=== PATIENT | male | born 1995 | race African-American/Black ===

== ENCOUNTER 2016-09-24 10:07 | Emergency (ER) | payer OTHER, SELFPAY ==
[2016-09-24] MEDS ORDERED: methylPREDNISolone Sod Succ/PF 125 MG/2 ML VIAL ONE (10:42)
--- NOTE | 2016-09-24 10:54 | RAD ---
PORTABLE CHEST: Date: 09-24-16 Comparison: 02-03-08 FINDINGS: Cardiac silhouette and pulmonary vasculature is within normal limits. The lungs remain clear. No oth er interval change. IMPRESSION: No acute cardiopulmonary process. POS: [facility]
[2016-09-24] MEDS ORDERED: Acetaminophen 500 MG TAB ONE (11:24)
== END 2016-09-24 12:13 | disposition home or self-care (01) ==
LOC: NAV ERS 10:07
DX: J45.901 Unspecified asthma with (acute) exacerbation (principal)
CPT/HCPCS: 71010; 94640; 96372; J2930; J7620

== ENCOUNTER 2019-01-10 12:03 | Emergency (ER) | payer SELFPAY ==
[2019-01-10] MEDS ORDERED: predniSONE 20 MG TAB ONE (13:00)
== END 2019-01-10 13:31 | disposition home or self-care (01) ==
LOC: NAV ERS 12:03
DX: J45.909 Unspecified asthma, uncomplicated (principal); F17.210 Nicotine dependence, cigarettes, uncomplicated; Z79.51 Long term (current) use of inhaled steroids
CPT/HCPCS: J7512; J7620

== ENCOUNTER 2020-07-11 09:37 | Emergency (ER) | payer OTHER, SELFPAY ==
[2020-07-11] MEDS ORDERED: HYDROcodone/Acetaminophen 5/325 mg Tablet ONE (10:54)
[2020-07-11] MEDS ORDERED: Bacitracin 1 PK ONE (11:21)
== END 2020-07-11 11:30 | disposition home or self-care (01) ==
LOC: NAV ERS 09:37
DX: S93.325A Dislocation of tarsometatarsal joint of left foot, initial encounter (principal); S93.402A Sprain of unspecified ligament of left ankle, initial encounter; S63.91XA Sprain of unspecified part of right wrist and hand, initial encounter; J45.909 Unspecified asthma, uncomplicated; F17.210 Nicotine dependence, cigarettes, uncomplicated; Z79.51 Long term (current) use of inhaled steroids; V86.56XA Driver of dirt bike or motor/cross bike injured in nontraffic accident, initial encounter

== ENCOUNTER 2021-06-04 16:55 | Emergency (ER) | payer SELFPAY ==
[2021-06-04 23:42] LABS: SARS-CoV-2 PCR by NAA Not Detected (NotDetected)
== END 2021-06-04 17:34 | disposition home or self-care (01) ==
LOC: NAV ERS 16:55
DX: B34.9 Viral infection, unspecified (principal); R11.0 Nausea; J45.909 Unspecified asthma, uncomplicated; F17.210 Nicotine dependence, cigarettes, uncomplicated; Z20.822 Contact with and (suspected) exposure to COVID-19
CPT/HCPCS: 87804; 99283; U0003; U0005

== ENCOUNTER 2021-11-12 18:01 | Emergency (ER) | payer SELFPAY | END 2021-11-12 19:19 | disposition home or self-care (01) | LOC: NAV ERS 18:01 | DX: J06.9 Acute upper respiratory infection, unspecified (principal); Z20.822 Contact with and (suspected) exposure to COVID-19 | CPT/HCPCS: 71045; U0003; U0005 ==

== ENCOUNTER 2022-02-18 10:41 | Emergency (ER) | payer SELFPAY ==
[2022-02-18] MEDS ORDERED: Sodium Chloride 0.9% 1,000 ML ONE ×2 (11:17→14:01)
[2022-02-18] MEDS ORDERED: Albuterol Sulfate 2.5 mg/0.5 ml Neb ONE ×2 (11:17→11:31)
[2022-02-18] MEDS ORDERED: Acetaminophen 500 MG TAB ONE ×2 (11:17→18:43)
[2022-02-18 11:42] LABS: Anion Gap 17 mmol/L (10-20); BUN (Urea Nitrogen) 8 mg/dL (8.9-20.6); Calc. Creatinine Clearance 0 mL/min (70-130); Carbon Dioxide 23 mmol/L (22-29); Chloride 106 mmol/L (98-107); Potassium 3.9 mmol/L (3.5-5.1); Sodium 142 mmol/L (136-145)
[2022-02-18 11:43] LABS: ALT (SGPT) 16 U/L (8-55); AST (SGOT) 16 U/L (5-34); Alkaline Phosphatase 62 U/L (40-110); Bilirubin, Total 1.7 mg/dL (0.2-1.2); Calcium 10.2 mg/dL (7.8-10.44); Estimated GFR 91; Globulin 3.4 g/dL (2.4-3.5); Glucose 99 mg/dL (70-105); Protein, Total 8.4 g/dL (6.0-8.3)
[2022-02-18 12:12] LABS: Bilirubin Negative (Negative); Blood, Urine Trace (Negative); Clarity Slightly Cloudy (Clear); Glucose, Urine (Dipstick) Negative (Negative); Ketone, Urine Trace mg/dL (Negative); Leukocyte Negative (Negative); Nitrite Negative (Negative); Protein, Urine (Dipstick) 30 mg/dL (Neg-Trace); pH, Urine 6.5 (5.0-9.0)
[2022-02-18 12:20] LABS: Hemoglobin 15.7 g/dL (14.0-18.0); MDiff Complete? YES; Mean Corpuscular HGB CONC 32.4 g/dL (32.0-36.0); Mean Corpuscular Hemoglobin 30.5 pg (27.0-31.0); Mean Corpuscular Volume 93.9 fl (78.0-98.0); Platelet Count 342 thou/uL (130-400); RBC Distribution Width 11.6 % (11.5-14.5); Red Blood Cell (RBC) Count 5.17 mill/uL (4.70-6.10); White Blood Cell (WBC) Count 24.6 thou/uL (4.8-10.8)
[2022-02-18 12:20] LABS: Bacteria/HPF Rare-Few HPF (None Seen); Mucous/LPF 1+ LPF (<2+); Squamous Epithelial 0-3 HPF (0-3)
[2022-02-18 12:21] LABS: Band 6 % (5-11); Lymphocytes 10 % (21-51); Monocytes 5 % (0-10); Neutrophil 79 % (42-75); Platelet Morphology Comment Appears Adequate
[2022-02-18] MEDS ORDERED: Sodium Chloride 0.9% 100 ML ONE ×2 (12:41→19:50)
[2022-02-18] MEDS ORDERED: Piperacillin/Tazobactam 3.375 GM VIAL ONE ×2 (12:41→19:50)
[2022-02-18 19:08] LABS: Acetaminophen Less than 10.0 mcg/mL (10.0-30.0)
[2022-02-18 19:30] LABS: SARS-CoV-2 NAA Rapid Test Not Detected (NotDetected)
== END 2022-02-18 20:37 | disposition short-term general hospital (02) ==
LOC: NAV ERS 10:41
DX: R50.9 Fever, unspecified (principal); R65.10 Systemic inflammatory response syndrome (SIRS) of non-infectious origin without acute organ dysfunction; J45.909 Unspecified asthma, uncomplicated; Z20.822 Contact with and (suspected) exposure to COVID-19
CPT/HCPCS: 71046; 80053; 80143; 81003; 81015; 83605; 85025; 87040; 87081; 87086; 87430; 87804; 96374; 96376; 80307; J2543; J3490; J7050; J7611; U0002

== ENCOUNTER 2022-04-23 01:25 | Emergency (ER) | payer SELFPAY ==
[2022-04-23] MEDS ORDERED: Penicillin V Potassium 250 MG TAB ONE (02:03)
[2022-04-23] MEDS ORDERED: HYDROcodone/Acetaminophen 5/325 mg Tablet ONE (02:03)
== END 2022-04-23 02:08 | disposition home or self-care (01) ==
LOC: NAV ERS 01:25
DX: K04.4 Acute apical periodontitis of pulpal origin (principal); K02.9 Dental caries, unspecified; J45.909 Unspecified asthma, uncomplicated; Z79.899 Other long term (current) drug therapy
CPT/HCPCS: 99282

== ENCOUNTER 2022-10-25 17:26 | Emergency (ER) | payer SELFPAY | END 2022-10-25 17:47 | disposition home or self-care (01) | LOC: NAV ERS 17:26 | DX: M54.50 Low back pain, unspecified (principal) | CPT/HCPCS: 99283 ==

== ENCOUNTER 2024-12-09 20:36 | Emergency (ER) | payer SELFPAY | END 2024-12-09 21:25 | disposition home or self-care (01) | LOC: NAV ERS 20:36 | DX: J45.901 Unspecified asthma with (acute) exacerbation (principal); R03.0 Elevated blood-pressure reading, without diagnosis of hypertension; F17.210 Nicotine dependence, cigarettes, uncomplicated | CPT/HCPCS: 94640; 96372; J1010; J7620 ==